=== PATIENT | male | born 1995 | race Caucasian/White ===

== ENCOUNTER → 2023-07-20 | Outpatient (CLI) | payer OTHER | LOC: M RAD 09:15 | PROVIDERS: ATTEND Physician Assistant Medical | DX: N50.811 Right testicular pain (principal) ==

== ENCOUNTER → 2023-08-09 | Outpatient (REF) | LOC: M PLAIMG 09:07 | PROVIDERS: ATTEND Internal Medicine | DX: R06.02 Shortness of breath (principal) ==